=== PATIENT | female | born 1975 | race Caucasian/White ===

== ENCOUNTER 2017-06-10 19:36 | Emergency (ER) | payer SELFPAY ==
[~2017-06-10] VITALS: Ht 157.5 cm; Wt 71.5 kg
[2017-06-10 21:03] VITALS: Ht 157.5 cm; Wt 71.5 kg
[2017-06-10 23:49] LABS: URINE BLOOD (Dip) POC Negative (NEGATIVE)
[2017-06-11] MEDS ORDERED: HYDROCODONE/APAP (5/325) TAB PO ONE
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
[2017-06-11 00:33] LABS: ADD UMIC NO; UR ASCORBIC ACID NEGATIVE (NEGATIVE); UR BILIRUBIN (Dip) NEGATIVE (NEGATIVE); UR BLOOD (Dip) NEGATIVE (NEGATIVE); UR CLARITY SLIGHTLY CLOUDY (CLEAR); UR COLOR YELLOW (YELLOW); UR GLUCOSE (Dip) NEGATIVE (NEGATIVE); UR KETONES (Dip) NEGATIVE (NEGATIVE); UR LEUKOCYTE ESTERASE (Dip) NEGATIVE Leu/ul (NEGATIVE); UR MUCUS FEW /HPF (NONE SEEN); UR NITRITE (Dip) NEGATIVE (NEGATIVE); UR RBC 2 /HPF (0-5); UR SQUAMOUS EPITHELIAL CELL FEW /HPF (FEW); UR TOTAL PROTEIN (Dip) NEGATIVE (NEGATIVE); UR UROBILINOGEN (Dip) 1+ mg/dL (NEGATIVE)
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
[2017-06-11] MEDS ORDERED: HYDR-906 PO (00:54)
[2017-06-11] MEDS ORDERED: CYCL-319 PO (00:54)
[2017-06-11] MEDS ORDERED: IBUP-1542 PO (00:54)
[2017-06-11 01:10] VITALS: BP 106/64; PULSE 55; RESP 15
== END 2017-06-11 01:10 | disposition home or self-care (01) ==
LOC: FTE 19:36
DX: S20.219A Contusion of unspecified front wall of thorax, initial encounter (principal); S30.1XXA Contusion of abdominal wall, initial encounter; S39.012A Strain of muscle, fascia and tendon of lower back, initial encounter; V49.50XA Passenger injured in collision with unspecified motor vehicles in traffic accident, initial encounter
CPT/HCPCS: 71020; 72100; 76705; 81001; 81003